=== PATIENT | female | born 1935 | race Caucasian/White ===

== ENCOUNTER 2018-05-26 10:04 | Inpatient (IN) ==
[2018-05-26 12:19] LABS: URINE SOURCE CLEAN CATCH
--- NOTE | 2018-05-26 12:27 | Diag Imaging Result Doc PS360 ---
CHEST-2 VIEWS - 05/26/2018 INDICATION: short of breath COMPARISON: 08/24/2017 FINDINGS: In the posterior costophrenic angles bilaterally, there is some trace infiltrate or atelectasis. No pneumothorax or significant pleural effusion. Heart size and pulmonary vascularity is normal. IMPRESSION: Minimal infiltrate or atelectasis in the posterior costophrenic angles. Electronically signed by Tomasz Card 05/26/2018 12:25 PM
[2018-05-26 12:28] LABS: BILIRUBIN URINE NEGATIVE (NEGATIVE); BLOOD URINE NEGATIVE (NEGATIVE); COLOR YELLOW; GLUCOSE URINE NEGATIVE (NEGATIVE); KETONE URINE NEGATIVE (NEGATIVE); LEUKOCYTES URINE NEGATIVE (NEGATIVE); NITRITE URINE NEGATIVE (NEGATIVE); PH URINE 5.5; PROTEIN URINE NEGATIVE (NEGATIVE); SP GRAVITY URINE 1.008; TURBIDITY URINE CLEAR (CLEAR); UROBILINOGEN URINE NORMAL (NORMAL)
[2018-05-26 12:30] LABS: UR EPITHELIAL CELLS <10 /HPF (<10); URINE BACTERIA NEGATIVE /HPF; URINE RBC <10 /HPF (<10); URINE WBC <10 /HPF (<10)
[2018-05-26 12:30] LABS: BASO# 0.05 X1000 (0.0-0.2); BASO% 0.7 % (0.0-0.8); EOS# 0.58 X1000 (0.0-0.7); EOS% 8.7 % (0.0-10.0); HEMATOCRIT 34.1 % (37.0-47.0); HEMOGLOBIN 10.9 g/dL (12.0-16.0); MCH 30.1 PG (27-31); MCV 94.2 FL (81-99); MONO# 0.72 X1000 (0.11-0.59); MONO% 10.8 % (1.7-9.3); NEUT# 4.33 X1000 (1.4-6.5); NEUT% 64.8 % (42.2-75.2); PLT 264 X1000 (130-400); RBC 3.62 XMIL (4.2-5.4); RDW 15.2 % (11.5-14.5); WBC 6.68 X1000 (4.8-10.8)
[2018-05-26 14:06] LABS: ALB/GLOB RATIO 1.2; ALBUMIN 3.9 g/dL (3.5-5.0); CALCIUM 9.6 mg/dL (8.8-10.2); CREATININE 1.4 mg/dL (0.5-0.9); POTASSIUM 4.7 mmol/L (3.5-5.1); TOTAL BILIRUBIN 0.15 mg/dL (0.20-1.00); TOTAL PROTEIN 7.1 g/dL (6.3-8.3)
--- NOTE | 2018-05-26 17:42 | PROVIDER DOCUMENTATION ---
This chart was entered by Elina Sparks Scribe, acting as scribe for Jason Jasso MD. HPI-Musculoskeletal Pain/Inj - GENERAL Chief Complaint: Edema Stated Complaint: EDEMA,BILA LEGS Time Seen by Provider: 05/26/18 11:14 Source: patient - HX OF PRESENT ILLNESS-MUSKULOSKELTAL Nature of Presenting Problem: Patient is a 83 year old female who presents to the ED with pain and swelling to bilateral lower extremities. Patient states symptoms have been present for 1 month. Patient states history of blood clots. Patient states she was sent by her PCP this morning to have a circulation test done on bilateral legs but was informed she could not have it done due to the swelling in bilateral legs. Patient does not report shortness of breath. Quality of Pain: reports: aching Severity in ED: mild Onset/Duration: other (1 month) Timing: still present, getting worse Modifying Factors: improves with: nothing Any recent injury?: No Locality of Occurance: Home Similar Symptoms Previously?: Yes Recently seen or treated by another doctor?: Yes - LOWER EXTREMITY PAIN/INJURY Lower Extremities Pain: leg: bilateral (lower) Context / Method of Injury: reports: unknown Associated Symptoms: reports: denies symptoms Review of Systems - Adult - REVIEW OF SYSTEMS - ADULT Constitutional: reports: no symptoms reported Eyes: reports: no symptoms reported Ears, Nose, Mouth & Throat: reports: no symptoms reported Cardiovascular: reports: no symptoms reported Respiratory: reports: no symptoms reported Gastrointestinal: reports: no symptoms reported Genitourinary: reports: no symptoms reported Musculoskeletal: reports: other (pain to bilateral lower extremities.). denies: back pain, neck pain Integumentary: reports: no symptoms reported Neurological: reports: no symptoms reported Psychiatric: reports: no symptoms reported Endocrine: reports: no symptoms reported Hematologic/Lymphatic: reports: no symptoms reported Allergic/Immunologic: reports: no symptoms reported All Other Systems: Reviewed and Negative Past History - Adult - PAST MEDICAL HISTORY-ADULT Review of Records: reports: Nursing Assessment Review, Medications Reviewed, Social history reviewed & non-contributory. Major Childhood Illnesses: reports: denies history Cardiovascular: reports: blood clots, HTN, hyperlipidemia Respiratory: reports: COPD Gastrointestinal: reports: denies history Obstetrical/Gynecological: reports: denies history Genitourinary: reports: kidney stones Musculoskeletal: reports: arthritis Neurological: reports: denies history Psychiatric: reports: denies history Endocrine/Immune: reports: Diabetes Other Conditions: reports: denies history Additional History: HX DVT - PRIOR SURGERIES/PROCEDURES Surgical/Procedure History: reports: appendectomy, cholecystectomy, hysterectomy , tonsillectomy, hernia repair, other (hemorrhoidectomy/bladder sx/cataract removal) - IMMUNIZATION STATUS Childhood Immunizations: See Nurse Assessment Flu Vaccine: See Nurse Assessment - FAMILY HISTORY Family History: reviewed, not pertinent - SOCIAL HISTORY Smoking: denies Substance Use: denies Living Situation: family Physical Exam-Injury Related - Physical Exam-Injury Related Initial Vital Signs Reviewed: Yes General Appearance: alert, no apparent distress Head, Ears, Nose, Mouth & Throat: other (dry mucous membranes.) Respiratory: chest non-tender, lungs clear, normal breath sounds Cardiovascular: normal peripheral pulses, regular rate, rhythm Extremity: calf tenderness (bilateral), erythema (LLE), swelling (bilateral lower extremities), other (stasis dermatitis to LLE) Integumentary: erythema (LLE), swelling (bilateral lower extremities) Neurologic: grossly normal Psych/Mental Status: normal mood/affect, oriented x 3 Progress - PLAN OF CARE/RESULTS Progress/Plan/Lab Results: Vital Signs - 8 hr 05/26/18 10:18 05/26/18 13:43 05/26/18 14:00 Temperature 98.6 F Pulse Rate 104 H 85 71 Respiratory Rate 17 20 14 Blood Pressure 107/56 150/73 O2 Sat by Pulse Oximetry 93 L 05/26/18 14:10 05/26/18 14:20 05/26/18 14:30 Temperature Pulse Rate 66 70 88 Respiratory Rate 12 14 13 Blood Pressure O2 Sat by Pulse Oximetry 05/26/18 14:40 05/26/18 14:50 05/26/18 15:00 Temperature Pulse Rate 72 74 71 Respiratory Rate 13 15 12 Blood Pressure O2 Sat by Pulse Oximetry 05/26/18 15:10 05/26/18 15:20 05/26/18 15:30 Temperature Pulse Rate 69 90 84 Respiratory Rate 13 14 20 Blood Pressure 150/74 O2 Sat by Pulse Oximetry 05/26/18 15:31 05/26/18 15:32 05/26/18 15:40 Temperature Pulse Rate 81 73 74 Respiratory Rate 17 20 14 Blood Pressure 137/78 O2 Sat by Pulse Oximetry 05/26/18 15:50 05/26/18 16:00 05/26/18 16:02 Temperature Pulse Rate 68 68 67 Respiratory Rate 14 15 16 Blood Pressure 123/75 O2 Sat by Pulse Oximetry 05/26/18 17:02 Temperature Pulse Rate 80 Respiratory Rate 21 Blood Pressure 134/86 O2 Sat by Pulse Oximetry Laboratory Results - last 24 hr 05/26/18 05/26/18 05/26/18 12:09 12:12 13:35 WBC 6.68 RBC 3.62 L Hgb 10.9 L Hct 34.1 L MCV 94.2 MCH 30.1 MCHC 32.0 L RDW Std Deviation 15.2 H Plt Count 264 MPV 10.0 Immature Gran % (Auto) 0.0 Neut % (Auto) 64.8 Lymph % (Auto) 15.0 L [place] % (Auto) 10.8 H Eos % (Auto) 8.7 Baso % (Auto) 0.7 Immature Gran # (Auto) 0.00 Neut # (Auto) 4.33 Lymph # (Auto) 1.00 L [place] # (Auto) 0.72 H Eos # (Auto) 0.58 Baso # (Auto) 0.05 Sodium 137 Potassium 4.7 Chloride 103 Carbon Dioxide 23 L Anion Gap 11 BUN 25 H Creatinine 1.4 H Estimated GFR/1.73 m2 36 BUN/Creatinine Ratio 18 Glucose 89 Calculated Osmolality 278 Calcium 9.6 Total Bilirubin 0.15 L AST 25 ALT 13 Alkaline Phosphatase 47 Awc-X-Puleuhzxvqh Pept Total Protein 7.1 Albumin 3.9 Globulin 3.2 Albumin/Globulin Ratio 1.2 Urine Source CLEAN CATCH Urine Color YELLOW Urine Turbidity CLEAR Urine pH 5.5 Ur Specific [place] 1.008 Urine Protein NEGATIVE Ur Glucose (Stick) NEGATIVE Ur Ketones (Stick) NEGATIVE Urine Blood NEGATIVE Urine Nitrite NEGATIVE Urine Bilirubin NEGATIVE Urobilinogen Dipstick NORMAL Urine Leukocytes NEGATIVE Urine WBC (Auto) <10 Urine RBC (Auto) <10 U Epithel Cells (Auto) <10 Urine Bacteria (Auto) NEGATIVE 05/26/18 13:35 WBC RBC Hgb Hct MCV MCH MCHC RDW Std Deviation Plt Count MPV Immature Gran % (Auto) Neut % (Auto) Lymph % (Auto) [place] % (Auto) Eos % (Auto) Baso % (Auto) Immature Gran # (Auto) Neut # (Auto) Lymph # (Auto) [place] # (Auto) Eos # (Auto) Baso # (Auto) Sodium Potassium Chloride Carbon Dioxide Anion Gap BUN Creatinine Estimated GFR/1.73 m2 BUN/Creatinine Ratio Glucose Calculated Osmolality Calcium Total Bilirubin AST ALT Alkaline Phosphatase Jta-T-Yhepywgtwnu Pept 847 H Total Protein Albumin Globulin Albumin/Globulin Ratio Urine Source Urine Color Urine Turbidity Urine pH Ur Specific [place] Urine Protein Ur Glucose (Stick) Ur Ketones (Stick) Urine Blood Urine Nitrite Urine Bilirubin Urobilinogen Dipstick Urine Leukocytes Urine WBC (Auto) Urine RBC (Auto) U Epithel Cells (Auto) Urine Bacteria (Auto) Orders Category Date Time Status Z-Document. for Tele Applied ORDERED Care 05/26/18 11:26 Active CHEST-2 VIEWS [RAD] Stat Exams 05/26/18 11:25 Completed CBC WITH ELECTRONIC DIFF [HEME] Stat Lab 05/26/18 12:09 Completed COMPREHENSIVE METABOLIC PANEL [CHEM] Stat Lab 05/26/18 13:35 Completed PRO B-NATRIURETIC PEPTIDE Stat Lab 05/26/18 13:35 Completed URINALYSIS W/POSS RFLX CULT [URINALYSIS] Stat Lab 05/26/18 12:12 Completed Telemetry [OM.EQ] Routine Oth 05/26/18 11:25 Active Result Diagrams: 05/26/18 12:09 05/26/18 13:35 - XRAY 1 XRAY Study: Chest Impression: See EMR Report (CHEST-2 VIEWS - 05/26/2018 INDICATION: short of breath COMPARISON: 08/24/2017 FINDINGS: In the posterior costophrenic angles bilaterally, there is some trace infiltrate or atelectasis. No pneumothorax or significant pleural effusion. Heart size and pulmonary vascularity is normal. IMPRESSION: Minimal infiltrate or atelectasis in the posterior costophrenic angles. Electronically signed by Tomasz Card 05/26/2018 12:25 PM 05/26/18 1225 Interpreting Physician: Tomasz Card MD Dictated Date/Time: 05/26/18 1222 cc: Jason Jasso MD; Amaury Robles DO) - CONSULTS/PCP/HOSPITALIST Notification #1 *Consult/PCP/Hospitalist*: MARY Waters for Hospitalist Time Discussed: 17:06 Reason/Comments: Dr. Jasso consulted with Evelin about patient. Consult Disposition: other (Evelin states she will have Dr. Burns call back.) #2 Consult: Dr. Burns Time Discussed: 17:37 Reason/Comments: Dr. Jasso consulted with Dr. Burns about patient. Consult Disposition: other (Dr. Burns states he will be admitting the patient for IV antibiotics due to failing outpatient treatment.) Departure - Departure Date of Disposition Decision: 05/26/18 Time of Disposition Decision: 17:40 DIAGNOSIS: Bilateral lower leg cellulitis Disposition: ADMITTED INPATIENT 09 Certified Medical Emergency: Emergent Condition: Stable Referrals and Follow-Ups: Amaury Robles DO [Primary Care Provider] - - Critical Care Note This patient required my direct & personal management of CC.: No Attestation - Physician/ ANNA Attestation The physician spent face to face time with patient:: Yes Advanced Practice Provider documentation review:: Supervising physician onsite and consulted in the evaluation and care of this patient. The physician did have a face to face encounter with the patient. This chart was documented by the indicated scribe, (Elina Spakrs Scribe) and accurately reflects the services I performed and decisions made by me, Jason Jasso MD, as attested by the provider's signature.
[2018-05-26] MEDS ORDERED: NS 500 ML IV ONE (17:52)
[2018-05-26] MEDS ORDERED: LOVENOX SUBQ SCH (18:00)
--- NOTE | 2018-05-26 19:13 | HISTORY AND PHYSICAL ---
CHIEF COMPLAINT: Bilateral lower extremity erythema, swelling, and excruciating pain since last 1 month, worsening over last 3 days. HISTORY OF PRESENT ILLNESS: Ms. Canas is an 83-year-old lady with past medical history of deep venous thrombosis and on chronic anticoagulation with Xarelto, Sjogren syndrome, Raynaud phenomenon, nephrolithiasis, paroxysmal atrial fibrillation, COPD, bladder spasm, chronic kidney disease stage 3, who comes in with complaints of bilateral lower extremity swelling, redness and pain which has been progressive and gradual. At baseline, patient is alert and oriented x3 and is able to carry out her activities of daily living without any trouble. However, she had started noticing bilateral lower extremity swelling about a month ago which was getting worse. For the same she had seen her regular doctor about 1 month ago. She had ultrasound of bilateral lower extremities, which did not detect any DVT. She was advised to continue her Xarelto. Meanwhile, she had started developing Raynaud phenomenon and she was referred to I resume a hospice coordinator who had seen the patient and had looking at her examination started on trimethoprim sulfamethoxazole for bilateral lower extremity cellulitis. The patient had been taking that medication for almost 4 days. However, she did not notice any improvement and so she had contacted her doctor again who had suggested she to come to the emergency room because her swelling was progressive and gradual and her warmth and tenderness was excruciating. The patient was kept in the emergency room and hospitalist service was consulted. I evaluated the patient at baseline. She appears in mild distress. She also has significant dryness of her mouth, likely because of her Sjogren syndrome and complains of excruciating pain in bilateral lower extremities. She denies any chest pain, shortness of breath, palpitation, nausea, vomiting, abdominal pain, diarrhea. She denies any urinary urgency, frequency. She states that she has always been chilly but denies any known fever episode. The last time she took aspirin and Xarelto was yesterday. The patient did not have any known trauma or injury to bilateral lower extremities REVIEW OF SYSTEMS: Negative for headache, visual disturbance. Negative for chest pain or shortness of breath. Negative for cough. Negative for nausea, vomiting. Negative for urinary burning or pain or hematuria. Otherwise, 12 point review of system is negative. PAST MEDICAL HISTORY: Sjogren syndrome, deep venous thrombosis, peripheral artery disease, nephrolithiasis, paroxysmal atrial fibrillation, Raynaud phenomenon, COPD not on home oxygen, bladder spasms, chronic kidney disease stage 3. PAST SURGICAL HISTORY: Hysterectomy, cholecystectomy, appendectomy, bilateral cataract surgery, hiatal hernia repair, tonsillectomy, hemorrhoidectomy, IVC filter placement. OTHER PAST MEDICAL HISTORY: 1. Bilateral DVT with IVC filter placement, history of essential hypertension, history of chronic GERD. 2. Chronic pain. 3. Hyperlipidemia. 4. Anxiety and depression. 5. Gastrointestinal bleed secondary to hemorrhagic gastritis and diverticulitis. 6. History of skin cancer status post resection. 7. History of esophageal stricture. SOCIAL HISTORY: The patient was never a smoker. Never a drinker. No recreational drugs. FAMILY HISTORY: COPD in father. Mother had history of stroke. One of her sisters had history of heart disease and unknown heart surgery. Second sister had history of gastric cancer. ALLERGIES: No known allergies. HOME MEDICATION: The patient's home medication reconciliation is pending, however, when I ask her and look at her pill bottles she is supposed to be taking trimethoprim sulfamethoxazole twice a day, cilostazol, gabapentin, [place]. On previous medical chart the patient was listed to be taking aspirin 81 mg daily, atorvastatin 10 mg at bedtime, Celexa 40 mg daily, Vasotec 10 mg daily, folic acid 1 mg daily, Lortab 7.5 mg q.6 hours p.r.n. for pain, multivitamin 1 tablet daily, Ditropan 5 mg b.i.d., Mirapex 0.25 mg at bedtime, Xarelto 20 mg at bedtime, trazodone 150 mg at bedtime, however, current reconciliation is pending. The patient's nurse is instructed to get the reconciliation. CURRENT VITAL SIGNS: Temperature 98.6 degrees, pulse of 68 per minute, respiratory rate 21 per minute, blood pressure 134/86, saturating 93% on room air. PHYSICAL EXAMINATION: GENERAL: Patient is in mild distress because of pain. HEENT: Oral cavity has significant dryness. LUNGS: Air entry bilaterally equal. No wheeze, rhonchi, crackles. CARDIOVASCULAR: S1, S2 normal. No murmur or gallop. ABDOMEN: Soft, nontender. BILATERAL UPPER EXTREMITIES: Radialis pulses are equal. She does have what appears to be cyanosis affecting bilateral fingers without any signs of necrosis and good capillary refill though. BILATERAL LOWER EXTREMITIES: Has extensive edema affecting up to bilateral knee. There is increased warmth affecting bilateral legs with erythema. She has poor nail condition. SKIN: There are some skin excoriations and abrasions on the skin, which is likely the portal of infection entry. LABORATORY DATA: Currently labs suggestive of no leukocytosis. Hemoglobin of 10.9 with normocytic anemia, normal platelet count, normal electrolytes except what appears to be acute kidney injury on chronic kidney disease stage 3. IMAGING: Chest x-ray analysis had minimal infiltrate or atelectasis in posterior costophrenic angles. ASSESSMENT: 1. Cellulitis of bilateral lower extremity. 2. Extensive history of bilateral extensive deep venous thrombosis status post IVC filter on chronic Xarelto use at home. 3. History of Sjogren's syndrome. 4. Failed outpatient therapy of oral antibiotics for bilateral cellulitis. 5. Bilateral lower extremity edema, likely in the setting of cellulitis versus venous insufficiency because of bilateral extensive history of deep venous thrombosis. 6. History of bladder spasm. 7. Acute kidney injury on chronic kidney disease stage 3. PLAN: 1. I will give the patient gentle hydration with intravenous fluid. We will start her on intravenous cefepime and intravenous linezolid. We will follow up with blood culture results. I would also consider getting an echocardiogram. I will give currently patient enoxaparin 1 mg/kg once a day dose considering her creatinine clearance is less than 30. We will follow up with BMP. I am awaiting medication reconciliation and we will start her on most of her home medications for her other medical illnesses. I will also follow up with EKG. We will keep her on heart healthy diet. 2. Code status is full code as per discussion with the patient. 3. Plan of care discussed with the patient. All of her questions have been answered. She also has history of Sjogren syndrome. cc: Ino Burns MD
[2018-05-26] MEDS: ZYVOX 600 MG/D5W 600 MG/300 ML IVPB IV SCH (20:51)
[2018-05-26] MEDS: MAXIPIME 1 GM in NS 50 ML IV SCH (20:53)
[2018-05-26] MEDS: DUONEB (A & A) INH PRN (21:59)
[2018-05-26] MEDS: PROTONIX PO SCH (22:31)
[2018-05-26] MEDS: NEURONTIN PO SCH (22:32)
[2018-05-27] MEDS: ZYVOX 600 MG/D5W 600 MG/300 ML IVPB IV SCH ×2 (04:50→17:42)
[2018-05-27 06:34] LABS: BASO# 0.06 X1000 (0.0-0.2); BASO% 1.4 % (0.0-0.8); EOS# 0.59 X1000 (0.0-0.7); EOS% 13.3 % (0.0-10.0); HEMATOCRIT 31.2 % (37.0-47.0); HEMOGLOBIN 9.9 g/dL (12.0-16.0); LYMPH# 0.72 X1000 (1.2-3.4); LYMPH% 16.3 % (20.5-51.1); MCH 29.9 PG (27-31); MCHC 31.7 g/dL (33-37); MCV 94.3 FL (81-99); MONO# 0.69 X1000 (0.11-0.59); MONO% 15.6 % (1.7-9.3); MPV 9.7 FL (7.4-10.4); NEUT# 2.36 X1000 (1.4-6.5); NEUT% 53.4 % (42.2-75.2); PLT 242 X1000 (130-400); RBC 3.31 XMIL (4.2-5.4); RDW 15.1 % (11.5-14.5); WBC 4.42 X1000 (4.8-10.8)
[2018-05-27 07:00] LABS: ALB/GLOB RATIO 1.2; ALBUMIN 3.2 g/dL (3.5-5.0); CALCIUM 9.1 mg/dL (8.8-10.2); CREATININE 1.3 mg/dL (0.5-0.9); MAGNESIUM 1.6 mg/dL (1.5-2.7); POTASSIUM 4.2 mmol/L (3.5-5.1); TOTAL BILIRUBIN 0.35 mg/dL (0.20-1.00); TOTAL PROTEIN 5.8 g/dL (6.3-8.3)
[2018-05-27] MEDS: MYRBETRIQ E.R. PO SCH (09:09)
[2018-05-27] MEDS: PLAQUENIL PO SCH (09:09)
[2018-05-27] MEDS: PLETAL PO SCH ×2 (09:09→21:05)
[2018-05-27] MEDS: PROTONIX PO SCH ×2 (09:09→21:05)
[2018-05-27] MEDS: ANORO ELLIPTA 62.5-25 MCG INH INH SCH (09:32)
[2018-05-27] MEDS: DUONEB (A & A) INH PRN ×3 (09:32→21:11)
[2018-05-27] MEDS: MAXIPIME 1 GM in NS 50 ML IV SCH ×3 (11:12→22:58)
[2018-05-27] MEDS ORDERED: TYLENOL PO ONE (14:37)
[2018-05-27] MEDS ORDERED: TEARISOL OPH SOLUTION BOTH EYES PRN (15:49)
--- NOTE | 2018-05-27 16:07 | PROGRESS NOTE ---
DATE: 05/27/2018 INTERVAL HISTORY: No acute events overnight. SUBJECTIVE: Patient has been feeling well. Does not appear to be in any acute distress. The patient states she was able to come out of bed, walk in the hallway without any trouble, and she stated that Physical Therapy was happy with her progress. Her pain in the bilateral lower extremity has gone down. VITALS: Currently detect temperature 98.1 degrees, pulse 70, respiratory rate 14, blood pressure 129/61, saturating 100% on 2 L nasal cannula. PHYSICAL EXAMINATION: General: Does not appear in any acute distress. Oral cavity is dry. Eyes also appear dry. Air entry bilaterally equal. No wheeze, rhonchi, crackles. S1, S2 normal. No murmur, rub, or gallop. Abdomen is soft, nontender. Bilateral radialis pulses are equal. No cyanosis. She has extensive edema affecting up to bilateral knee level, and there is also increased warmth bilaterally; however, the edema, warmth, and redness have decreased then from yesterday's examination. There were some skin excoriations. She has socks on today. LABORATORY DATA: Today suggestive of no leukocytosis, normocytic anemia. Normal electrolytes except hyperchloremia, improving BUN and creatinine. MICROBIOLOGY: Blood culture in lab. ASSESSMENT: 1. Cellulitis of bilateral lower extremity with portal of entry being poor skin and nail condition of bilateral feet with failed outpatient oral antibiotic therapy. 2. Previous history of bilateral extensive deep venous thromboses many years ago, status post inferior vena cava (IVC) filter, on chronic Xarelto. 3. History of peripheral arterial disease. 4. History of Sjogren's syndrome. 5. History of bladder spasm. 6. Acute kidney injury on chronic kidney disease, stage 3. 7. History of peripheral arterial disease. PLAN: I will continue patient on intravenous linezolid and cefepime until final blood culture results come back. I will continue her medications for chronic pain, including gabapentin. We will give her p.r.n. acetaminophen. I will continue her on Anoro Ellipta for history of COPD, hydroxychloroquine for history Sjogren's syndrome. I will continue cilostazol and atorvastatin for history of peripheral artery disease. Plan of care was discussed with the patient. All of her questions have been answered. cc: Ino Burns MD
[2018-05-27] MEDS: LOVENOX SUBQ SCH (17:43)
[2018-05-27] MEDS: LIPITOR PO SCH (21:05)
[2018-05-27] MEDS: NEURONTIN PO SCH (21:05)
[2018-05-27] MEDS: MIRAPEX PO SCH (21:06)
[2018-05-28] MEDS: ZYVOX 600 MG/D5W 600 MG/300 ML IVPB IV SCH ×2 (06:32→18:16)
[2018-05-28 07:07] LABS: CREATININE 1.6 mg/dL (0.5-0.9); POTASSIUM 4.5 mmol/L (3.5-5.1)
[2018-05-28] MEDS: PLAQUENIL PO SCH (08:42)
[2018-05-28] MEDS: PLETAL PO SCH ×2 (08:43→22:14)
[2018-05-28] MEDS: MYRBETRIQ E.R. PO SCH (08:43)
[2018-05-28] MEDS: PROTONIX PO SCH ×2 (08:44→22:15)
[2018-05-28] MEDS: ANORO ELLIPTA 62.5-25 MCG INH INH SCH (10:01)
[2018-05-28] MEDS: DUONEB (A & A) INH PRN (10:01)
[2018-05-28] MEDS: TYLENOL PO PRN (10:29)
[2018-05-28] MEDS: MAXIPIME 1 GM in NS 50 ML IV SCH ×2 (10:55→22:14)
--- NOTE | 2018-05-28 11:11 | EKG Report ---
Test Performed on : 05/28/2018 11:06:46 AM Test Reason : HR 145, ST elevation Blood Pressure : / mmHG Vent. Rate : 101 BPM Atrial Rate : 101 BPM P-R Int : 150 ms QRS Dur : 086 ms QT Int : 364 ms P-R-T Axes : 062 -05 021 degrees QTc Int : 471 ms Sinus tachycardia. Septal infarct (cited on or before 04-APR-2016) Cannot rule out Inferior infarct (cited on or before 04-APR-2016) Abnormal ECG When compared with ECG of 20-JUL-2016 23:20, premature atrial complexes. are no longer present Vent. rate has increased BY 36 BPM Serial changes of Septal infarct present Unconfirmed Result
[2018-05-28] MEDS ORDERED: NS 1,000 ML IV SCH (14:30)
--- NOTE | 2018-05-28 14:41 | PROGRESS NOTE ---
DATE: 05/28/2018 INTERVAL HISTORY: I was told that when patient was taking a shower her heart rate had increased to 140 beats per minute. She did not have any chest pain or dizziness or shortness of breath. Telemetry had informed this to the nursing team, so I had ordered a stat EKG. By the time I went there to evaluate the patient, patient was resting in her bed. She denies any chest pain, shortness of breath. She states that she did not have any palpitation either. The EKG has normal sinus rhythm with sinus tachycardia on bedside monitor as well. The patient denies chest pain, shortness of breath, nausea, vomiting. She has been able to go to the bathroom by herself without any trouble. Her swelling of the bilateral lower extremities and pain of the bilateral lower extremities is decreasing; however, it is still there. OBJECTIVE: Vital signs: Temperature 98 degrees, pulse 71, respiratory rate 14, blood pressure 109/48, saturating 93% on 2 L nasal cannula. General: Does not appear in any acute distress. HEENT: Oral cavity is dry. Eyes also appear dry. Lungs: Air entry bilaterally equal. No wheeze, rhonchi, crackles. Cardiovascular: S1, S2 normal. Tachycardic. No murmur, rub, or gallop. Abdomen: Soft, nontender. Extremities: Bilateral radialis pulses are equal without any cyanosis. She has decreasing edema affecting bilateral lower extremities, extending up to upper smith levels. There is slight warmth which is equal bilaterally. However, the warmth and erythema bilateral lower extremities has decreased from previous examination. Her legs are on 2 pillows and they are elevated. LABS: No CBC today. BMP is suggestive of what appears to be acute kidney injury on chronic kidney disease stage 3. MICROBIOLOGY: Blood culture has not shown any growth. ASSESSMENT AND PLAN: 1. Cellulitis of bilateral lower extremities with portal of entry being poor skin and nail condition of bilateral feet with failed outpatient oral Bactrim therapy. Continue patient on intravenous cefepime and intravenous linezolid. Blood culture has not shown any growth to date. My plan is to change her antibiotics to oral antibiotics tomorrow and to complete about a 7 day course. 2. Tachycardia: Sinus on monitor. Likely related to physical exertion. I will continue to monitor her on tele. 3. Dysphagia: Oropharyngeal. Likely due to her Sjogren's syndrome. 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 2. Previous history of bilateral extensive deep vein thrombosis many years ago, status post inferior vena cava filter, on chronic Xarelto. I will continue her on enoxaparin 1 mg/kg once a day, adjusted for kidney function. At the time of discharge, depending on her kidney function, we will resume Xarelto or Eliquis. Dr. Rogers is her outpatient provider. 3. History of peripheral artery disease, peripheral neuropathy, and chronic pain. Continue home cilostazol, gabapentin, and Tylenol. Also, continue pramipexole for restless legs syndrome. 4. History of Sjogren syndrome and bladder spasm. Continue eye drops and mirabegron, which are her home medication. 5. History of chronic obstructive pulmonary disease. Continue Anoro Ellipta and albuterol ipratropium nebulization. I will change it to ipratropium only today considering her tachycardia. She is not complaining of any shortness of breath at the moment. 6. Acute kidney injury on chronic kidney disease stage 3. The patient has not been eating by mouth adequately. I will give her gentle hydration and follow up with BMP tomorrow. 7. Chronic gastroesophageal reflux disease. Continue patient on pantoprazole b.i.d. which is her home medication. 8. Disposition. The patient did develop an episode of tachycardia with heart rate of 140 per minute, though it was sinus tachycardia. The patient currently does have a heart rate of 140, though she is asymptomatic. My plan is to just monitor her overnight and if she is feeling okay, change her antibiotics to by mouth. Await for repeat BMP to make sure her kidney function is improved and discharge her on p.o. antibiotics and anticoagulation for DVT. Plan of care was discussed with the patient. All of her questions have been answered. cc: Ino Burns MD MTDD
[2018-05-28] MEDS ORDERED: ZOFRAN IV PRN (15:25)
[2018-05-28] MEDS: ATROVENT NEB INH SCH ×2 (15:33→21:29)
[2018-05-28] MEDS: LOVENOX SUBQ SCH (18:17)
[2018-05-28] MEDS: LIPITOR PO SCH (22:14)
[2018-05-28] MEDS: NEURONTIN PO SCH (22:14)
[2018-05-28] MEDS: MIRAPEX PO SCH (22:15)
[2018-05-29] MEDS: ATROVENT NEB INH SCH ×4 (03:22→19:45)
[2018-05-29] MEDS: ZYVOX 600 MG/D5W 600 MG/300 ML IVPB IV SCH ×2 (05:09→17:58)
[2018-05-29 07:31] LABS: BASO# 0.04 X1000 (0.0-0.2); BASO% 0.9 % (0.0-0.8); EOS# 0.63 X1000 (0.0-0.7); EOS% 13.8 % (0.0-10.0); HEMATOCRIT 31.8 % (37.0-47.0); HEMOGLOBIN 10.1 g/dL (12.0-16.0); LYMPH# 0.72 X1000 (1.2-3.4); LYMPH% 15.8 % (20.5-51.1); MCH 30.1 PG (27-31); MCHC 31.8 g/dL (33-37); MCV 94.9 FL (81-99); MONO% 15.3 % (1.7-9.3); MPV 9.7 FL (7.4-10.4); NEUT# 2.48 X1000 (1.4-6.5); NEUT% 54.2 % (42.2-75.2); PLT 248 X1000 (130-400); RBC 3.35 XMIL (4.2-5.4); RDW 15.5 % (11.5-14.5); WBC 4.57 X1000 (4.8-10.8)
[2018-05-29 07:57] LABS: CALCIUM 8.9 mg/dL (8.8-10.2); CREATININE 1.5 mg/dL (0.5-0.9)
[2018-05-29] MEDS: ANORO ELLIPTA 62.5-25 MCG INH INH SCH (10:22)
[2018-05-29] MEDS: MAXIPIME 1 GM in NS 50 ML IV SCH ×2 (11:14→23:21)
[2018-05-29] MEDS ORDERED: SODIUM CHLORIDE 0.9% INJ SCH (11:45)
--- NOTE | 2018-05-29 14:35 | GASTROENTEROLOGY CONSULTATION ---
DATE: 05/29/2018 REFERRING PHYSICIAN: Dr. Burns. PRIMARY CARE DOCTOR: Dr. Amaury Robles. REASON FOR CONSULTATION: Dysphagia. HISTORY OF PRESENT ILLNESS: Ms. Canas is an 83-year-old female who was admitted on 05/26/2018 for cellulitis of the lower extremity. She has a prior history of extensive bilateral deep vein thrombosis status post IVC filter. She is on chronic Xarelto at home. She also has a history of Sjogren syndrome. She has history of previous dysphagia. Her last EGD with dilation was done by Dr. Amaury Robles as an outpatient more than a year ago. Prior to that, she had an EGD done by Dr. Echevarria in 2017. She complained of continuing trouble swallowing, and Gastroenterology was consulted for EGD with possible dilation. PAST MEDICAL HISTORY: Sjogren syndrome, deep vein thrombosis, peripheral arterial disease, nephrolithiasis, paroxysmal atrial fibrillation, Raynaud phenomena, COPD, bladder spasm, chronic kidney disease stage 3. Other past medical history includes chronic pain, hyperlipidemia, anxiety, depression, GI bleed history secondary to hemorrhagic gastritis, diverticulitis, history of skin cancer status post resection, history of esophageal stricture. PAST SURGERY HISTORY: Hysterectomy, cholecystectomy, appendectomy, bilateral cataract surgery, hiatal hernia repair, tonsillectomy, hemorrhoidectomy, IVC filter placement, last EGD with biopsy and esophageal dilation was done on 04/17/2016 where a foreign body was found in the stomach and EGD showed distal esophageal ulceration which was biopsied and patient underwent esophageal dilation to 56-Vincentian. SOCIAL HISTORY: She has never been a smoker, never a drinker. No history of recreation drugs. She lives at home. FAMILY HISTORY: Father had COPD, mother had stroke. One of the sisters had heart disease and an unknown heart surgery. Second sister had history of gastric cancer. ALLERGIES: No known drug allergies. MEDICATIONS IN THE HOSPITAL: Include: 1. Lipitor. 2. Neurontin. 3. Mirapex. 4. Tylenol. 5. Pletal. 6. Lovenox q.24 hours. 7. Hydroxychloroquine. 8. Ipratropium. 9. Cefepime. 10. Mirabegron 10 mg every day. 11. Zofran. 12. Protonix b.i.d. 13. Linezolid q.12 hours. DIET: She is on a heart healthy diet. REVIEW OF SYSTEMS: Denies any current fevers, rigors, chills, chest pain, shortness of breath, dyspnea. Denies any vomiting blood or passing blood in the stools. She is complaining of trouble swallowing solids and liquids at this time. She has a history of arthritis. She has bilateral cellulitis. PHYSICAL EXAMINATION: Vital Signs: Temperature 98 degrees, pulse of 84, respiratory rate 17, blood pressure 123/61, saturating 94% on nasal cannula. Body weight of 126 pounds, BMI 21 kg/m2. General: Thinly built, lying in bed, in no acute distress. HEENT: Pale with no icterus. Pupils equal, reactive to light and accommodation. Neck: Supple. Abdomen: Soft, nontender. No guarding or rebound. Extremities: No cyanosis, clubbing. She has bilateral lower extremity edema and some redness suggesting cellulitis. Neurologic: She is alert, awake, oriented. LABORATORY DATA: Hemoglobin and hematocrit is 10.1 and 31.8, white count of 4.57, platelet count of 248,000. Sodium 141, potassium 5, chloride 109, bicarb 23, anion gap 9, BUN of 15, creatinine 1.5, glucose of 103, calcium is 8.9. AST 18, ALT 9, alkaline phosphatase 36, total protein, albumin 3.2. Blood cultures are negative at 48 hours. Her Last EGD with biopsies done in the hospital with Dr. Echevarria. EGD showed evidence of esophageal ulceration which on biopsy showed markedly reactive squamous mucosa with extensive ulceration. She was dilated up to 56-Vincentian at that time. IMPRESSION AND PLAN: 1. Cellulitis of the lower extremities. She is on IV cefepime and IV linezolid per the primary care team. 2. Dysphagia. She will be scheduled for EGD tomorrow with Dr. Sweenye. The risks, benefits, indications, and alternatives to the procedure discussed with the patient and all questions answered. 3. Sjogren syndrome. Aware. 4. History of bilateral extensive deep vein thrombosis status post inferior vena cava filter placement, on chronic Xarelto. This has been withheld. She is currently on Lovenox. We will hold Lovenox for tomorrow morning. 5. History of peripheral arterial disease, chronic pain and peripheral neuropathy. Aware. 6. Chronic obstructive pulmonary disease history. Aware. The patient has never been a smoker. She is on nebulizer treatment. 7. Chronic reflux disease. She is to continue with Protonix b.i.d. 8. I will start her on bowel regimen with Dulcolax once daily. 9. We will switch her to Protonix IV b.i.d. She is anemic, so we will start her on multivitamin, iron, C b.i.d. The above plans discussed with the patient and all questions answered. Please call us with any further questions. cc: MD Amaury Gannon DO MTDD
[2018-05-29] MEDS: PROTONIX IV SCH (16:30)
[2018-05-29] MEDS: MYRBETRIQ E.R. PO SCH (16:30)
[2018-05-29] MEDS ORDERED: NS NEB INH SCH ×2 (16:30→17:00)
--- NOTE | 2018-05-29 16:42 | PROGRESS NOTE ---
DATE: 05/29/2018 SUBJECTIVE: Patient has no major complaints. OBJECTIVE: Vital Signs: Blood pressure 143/82, heart rate 91, respiratory rate 17, temperature 97.9 degrees, satting 95% on room air. General: The patient is complaining of constant coughing, but she also cannot swallow. She has trouble swallowing and secretions. Speech therapy has evaluated her and felt this is more likely an esophageal issue than a motor issue of her pharyngeal muscles. Cardiovascular: Regular rate and rhythm. Pulmonary: Clear to auscultation. GI: Soft, nontender, nondistended. Bowel sounds are positive. LABORATORY DATA: White count is 4, hemoglobin and hematocrit 10 and 31, platelets 248. Creatinine 1.5 which is close to baseline. PROBLEM LIST: 1. Cellulitis. She is on cefepime and linezolid. This seems to be improving. Today will be the last day of antibiotics. We will re-evaluate tomorrow; if improved, then we will discontinue. 2. Severe dysphagia. She has a history of Sjogren's. Again, speech recommends a Gastroenterology evaluation. Gastroenterology recommends esophagogastroduodenoscopy. She has had esophageal stricture and dilation in the past. 3. Deep vein thrombosis. She is on Lovenox, which has been discontinued, and we will resume Xarelto or Eliquis. I think with her renal function, I am going to say Eliquis is probably a safer option. 4. Chronic obstructive pulmonary disease. She has breathing treatments. She is just on albuterol because she has some tachycardia, which has been marginal. I do not really see too much tachycardia. I am just going to put her on some Xopenex, but I think her coughing is probably related to her esophageal issues and reflux. We will go ahead and repeat a chest x- ray and follow. DISPOSITION: Pending resolution of her GI issues. cc: Doc Telles MD
[2018-05-29] MEDS ORDERED: XOPENEX NEB INH ONE (17:00)
[2018-05-29] MEDS: LOVENOX SUBQ SCH (17:59)
[2018-05-29] MEDS: MUCOMYST 20% INH SCH (19:45)
[2018-05-29] MEDS ORDERED: ICAR-C PO SCH (21:00)
[2018-05-29] MEDS: XOPENEX NEB INH SCH (22:19)
[2018-05-29] MEDS: DULCOLAX PR SCH (22:27)
[2018-05-30] MEDS: PROTONIX IV SCH (00:21)
[2018-05-30] MEDS: XOPENEX NEB INH SCH ×4 (03:30→22:50)
[2018-05-30] MEDS: ATROVENT NEB INH SCH ×4 (03:30→22:50)
[2018-05-30] MEDS: ZYVOX 600 MG/D5W 600 MG/300 ML IVPB IV SCH ×2 (05:07→17:18)
[2018-05-30 07:19] LABS: BASO# 0.05 X1000 (0.0-0.2); BASO% 0.8 % (0.0-0.8); EOS# 0.86 X1000 (0.0-0.7); EOS% 14.6 % (0.0-10.0); HEMATOCRIT 33.6 % (37.0-47.0); HEMOGLOBIN 10.7 g/dL (12.0-16.0); LYMPH# 0.91 X1000 (1.2-3.4); LYMPH% 15.4 % (20.5-51.1); MCH 30.1 PG (27-31); MCHC 31.8 g/dL (33-37); MCV 94.6 FL (81-99); MONO% 15.3 % (1.7-9.3); MPV 9.7 FL (7.4-10.4); NEUT# 3.18 X1000 (1.4-6.5); NEUT% 53.9 % (42.2-75.2); PLT 253 X1000 (130-400); RBC 3.55 XMIL (4.2-5.4); RDW 15.3 % (11.5-14.5)
[2018-05-30 07:38] LABS: CREATININE 1.4 mg/dL (0.5-0.9); POTASSIUM 4.5 mmol/L (3.5-5.1)
[2018-05-30] MEDS ORDERED: DIPRIVAN 1% ONE (07:46)
[2018-05-30] MEDS: ANORO ELLIPTA 62.5-25 MCG INH INH SCH (09:42)
[2018-05-30] MEDS: MUCOMYST 20% INH SCH ×2 (09:42→22:50)
--- NOTE | 2018-05-30 09:43 | OPERATIVE NOTE ---
PROCEDURE DATE: 05/30/2018 PROCEDURE: Upper GI endoscopy with biopsy. PROVIDER: Harsh Sweeney MD. INDICATIONS: Dysphagia. MEDICATIONS: Monitored anesthesia care. DESCRIPTION OF PROCEDURE: Prior to the procedure, a history and physical was performed and the patient medications and allergies were reviewed. The patient's tolerance to previous anesthesia was also reviewed. The risks and benefits of the procedure and sedation options and risks were discussed with the patient. All their questions were answered and informed consent was obtained. After reviewing the risks and benefits, the patient was deemed in satisfactory condition to undergo the procedure. The endoscope was passed under direct visualization. Throughout the procedure, the blood pressure, pulse and oxygen saturations were monitored continuously. Endoscope was introduced through the mouth and advanced to the second part of the duodenum. The upper GI endoscopy was accomplished without difficulty. The patient tolerated the procedure well. COMPLICATIONS: No immediate complications. ESTIMATED BLOOD LOSS: Minimal. FINDINGS: There was a small hiatal hernia. The Z-line was found at 35 cm from the incisors. Within the stomach, there was striped mild gastritis found in the antrum and body of the stomach. Random gastric biopsies were obtained with cold biopsy forceps to rule out H. pylori. Retroflexion in the stomach showed hiatal hernia as above. The duodenal bulb and second portion were within normal limits. IMPRESSIONS: 1. Small hiatal hernia. 2. Gastritis, biopsied. 3. Normal duodenum RECOMMENDATIONS: 1. Await pathology results. 2. Advance diet as tolerated. 3. Dysphagia precautions. 4. Consider modified barium swallow if the patient continues to complain of dysphagia. 5. Continue PPI once daily, can transition to oral therapy. Will follow with you. Please call with any questions or concerns. [facility]
[2018-05-30] MEDS: MYRBETRIQ E.R. PO SCH (09:56)
[2018-05-30] MEDS: CENTRUM SILVER PO SCH (09:57)
--- NOTE | 2018-05-30 11:04 | Diag Imaging Result Doc PS360 ---
EXAM: CHEST-2 VIEWS HISTORY: hypoxia TECHNIQUE: Chest two views COMPARISON: 05/26/2018 FINDINGS: The lungs are hyperexpanded. There are small bilateral pleural effusions. There is atelectasis in the left lung base. There may be small underlying infiltrates as well. No cardiomegaly. No pulmonary edema. IMPRESSION: Emphysema with small pleural effusions and left basilar atelectasis and/or small infiltrate Electronically signed by Tung Marin 05/30/2018 11:02 AM
[2018-05-30] MEDS: MAXIPIME 1 GM in NS 50 ML IV SCH ×2 (11:54→23:25)
--- NOTE | 2018-05-30 16:47 | PROGRESS NOTE ---
DATE: 05/30/2018 SUBJECTIVE: Patient has no major complaints. OBJECTIVE: Vital signs: Blood pressure is 131/65, heart rate of 86, respiratory rate 16, temperature 98 degrees. 97% on room air. Cardiovascular: Regular rate and rhythm. Pulmonary: Bilateral breath sounds, clear to auscultation. Gastrointestinal: Abdomen soft, nontender, nondistended. Bowel sounds are positive. LABORATORY DATA: White count 5, hemoglobin and hematocrit 10 and 33, platelets 253,000. Creatinine is 1.4. PROBLEM LIST: 1. Cellulitis. She is on cefepime and linezolid. I think this will be the last day of antibiotics. 2. Dysphagia and dyspepsia. It is not quite sure why she is having these issues. In any case, it is unclear. She does not have obstruction. She does not have dysphasia as far as neurological. EGD showed some gastritis for which she is on a proton pump inhibitor. 3. History of deep venous thrombosis. We are going to put her on Eliquis, transition her off Lovenox. 4. Chronic obstructive pulmonary disease appears to be stable. DISPOSITION: We will re-evaluate. Continue diet and see. She is complaining of lack of bowel movement. We will address that and figure out if there are any other major issues to worry about there. cc: Doc Telles MD
[2018-05-30] MEDS: REGLAN IV SCH (17:18)
[2018-05-30] MEDS: MIRALAX PO SCH (17:18)
[2018-05-30] MEDS: LACTULOSE PO SCH (21:13)
[2018-05-30] MEDS: DULCOLAX PR SCH (21:13)
[2018-05-30] MEDS: TYLENOL PO PRN (21:13)
[2018-05-30] MEDS: NORCO-5 PO PRN (23:38)
[2018-05-31] MEDS: REGLAN IV SCH ×3 (00:29→16:57)
[2018-05-31] MEDS: ATROVENT NEB INH SCH ×3 (04:10→16:19)
[2018-05-31] MEDS: XOPENEX NEB INH SCH ×3 (04:10→16:19)
[2018-05-31] MEDS: ZYVOX 600 MG/D5W 600 MG/300 ML IVPB IV SCH (05:46)
[2018-05-31] MEDS: PROTONIX PO SCH ×2 (05:53→06:40)
[2018-05-31] MEDS: ELIQUIS PO SCH ×2 (05:53→16:58)
[2018-05-31] MEDS: MYRBETRIQ E.R. PO SCH (08:45)
[2018-05-31] MEDS: MIRALAX PO SCH (08:45)
[2018-05-31] MEDS: CENTRUM SILVER PO SCH (08:45)
[2018-05-31] MEDS: LACTULOSE PO SCH (08:45)
[2018-05-31] MEDS: MUCOMYST 20% INH SCH (09:47)
[2018-05-31] MEDS: ANORO ELLIPTA 62.5-25 MCG INH INH SCH (09:47)
[2018-05-31] MEDS: MAXIPIME 1 GM in NS 50 ML IV SCH (10:33)
[2018-05-31] MEDS: NORCO-5 PO PRN (10:33)
--- NOTE | 2018-05-31 10:38 | PROVIDER PROGRESS NOTE ---
Progress Note SUBJECTIVE: No acute overnight events. No N/V/F, CP, SOB, abdominal pain. Patient denies dysphagia and is tolerating cardiac diet. OBJECTIVE: Last Vital Signs Temp 97.9 F 05/31/18 07:24 Pulse 103 H 05/31/18 09:47 Resp 15 05/31/18 09:47 BP 106/65 05/31/18 07:24 Pulse Ox 93 L 05/31/18 09:47 Height 5 ft 5 in Weight 126 lb GEN: awake, alert NAD HEENT: anicteric, MMM NECK: supple, no jvd CV: RRR, no murmurs PULM: CTAB, no wheezing ABD: soft NT/ND, NABS EGD 05/30 IMPRESSIONS 1. Hiatal hernia. 2. Gastritis, biopsied. RECOMMENDATIONS: 1. Await pathology results. 2. Advance diet as tolerated. 3. Dysphagia precautions. 4. Consider modified barium swallow if the patient continues to complain of dysphagia. 5. Continue PPI once daily, can transition to oral therapy. 6. Will follow with you. Please call with any questions or concerns. IMPRESSION AND PLAN: Ms. Martina Canas is a 83 year old woman with Sjogren's, PAD, chronic pain, COPD, GERD admitted with cellulitis. GI consulted for dysphagia. EGD yesterday revealed a hiatal hernia without evidence of luminal obstruction. She is currently on PPI once daily and tolerating cardiac diet. #Dysphagia: probable oropharyngeal vs. motility disorder; tolerating diet; continue PPI, dysphagia precautions #Gastritis: s/p gastric biopsies; if positive for H pylori, then will need 2 weeks of triple therapy #Cellulitis: on abx as per primary #Sjogren's syndrome: aware #GERD: continue PPI, aGERD diet/lifestyle #Anemia: stable; no overt bleeding Will sign off. Recommend outpatient follow-up in 4-6 weeks to reassess symptoms. Please call with questions or concerns
[2018-05-31] MEDS ORDERED: BLISTEX MEDICATED BERRY LIP BALM TOP PRN (10:44)
--- NOTE | 2018-05-31 15:12 | DISCHARGE SUMMARY ---
ADMISSION DATE: 05/26/2018 DISCHARGE DATE: 05/31/2018 SUBJECTIVE: The patient has no major complaints. DISCHARGE DIAGNOSES: 1. Cellulitis. 2. Dysphagia. 3. Gastritis, hiatal hernia. 4. History of deep venous thrombosis. 5. Chronic obstructive pulmonary disease. CONSULTATIONS: Dr. Sweeney. PROCEDURE: Upper GI endoscopy with biopsy on the . HOSPITAL COURSE: Briefly, this is an 83-year-old female presenting with erythema in both legs and pain. She has been on Bactrim as an outpatient. She did have a history of DVT, but she had Dopplers done about a month prior and they were negative. The patient complaining of dryness of mouth. She has a history of Sjogren's. She was admitted, placed on antibiotics, which included cefepime and linezolid. She was placed on enoxaparin renally dosed. Overall she improved. She was status post IVC filter placement. She was maintained on her regular medications. GI was consulted because of dysphagia. Speech therapy felt this was most likely related to GI issues. She underwent scope on the for Dr. Sweeney. It showed hiatal hernia and gastritis. Recommended PPI and aspiration type precautions. She continued to improve. On the , she was tolerating p.o. without difficulty. She was afebrile. Saturations were 92 to 93 on room air. Her labs had been stable up until discharge; in fact, her H and H had gone up. DISCHARGE MEDICATIONS: Lipitor 10, gabapentin 300, Mirapex 0.25, Anoro Ellipta 1 puff daily, Cozaar 50 daily, [place] daily, mirabegron 10 daily, Plaquenil 200 daily, Pletal 100 b.i.d., prednisone as needed, Ventolin p.r.n., clindamycin 300 t.i.d. for 7 days as for her cellulitis, Eliquis 2.5 p.o. b.i.d. that is for her DVT history and Protonix 40 b.i.d.; I think we could probably just decrease that to daily. DISCHARGE CONDITION: Stable. She will need follow up with her PCP in 1 to 2 weeks and GI in 4 to 6 weeks. cc: MD Harsh Perez MD Thomas E. Lockard, DO
[2018-05-31 15:25] VITALS: BP 128/64
== END 2018-05-31 18:19 | disposition home or self-care (01) | DRG 603 ==
LOC: ED 10:04 → SUATTDRO 18:11 → 3N 18:11
PROVIDERS: ATTEND Internal Medicine
CPT/HCPCS: 71020; 71046; 80048; 80053; 81001; 82948; 83735; 83880; 85025; 87040; 93005; 93010; 94640; 94761; 97162; 99285; A9270; C9113; J0692; J1650; J2020; J2405; J2765; J7030; J7040; S0164; XXXXX